=== PATIENT | female | born 1990 | race Caucasian/White ===

== ENCOUNTER 2017-08-05 09:40 | Emergency (ER) | payer SELFPAY ==
[~2017-08-05] VITALS: Ht 170.2 cm; Wt 86.0 kg
[~2017-08-05 09:40] MED LIST: POLY10O EACH EYE
[2017-08-05 09:42] VITALS: BP 141/89; PULSE 90; RESP 20; TEMP 99.5; O2SAT 99
[2017-08-05] MEDS ORDERED: birth control (10:33)
[2017-08-05] MEDS ORDERED: IPRA0.06 EACH NARE (10:41)
[2017-08-05] MEDS ORDERED: SPRI28TA PO (10:41)
[2017-08-05] MEDS ORDERED: KETOROLAC TROMETHAMINE 30 MG/ML (IVP) VIAL IVP ONE (10:45)
[2017-08-05] MEDS ORDERED: ONDANSETRON HCL 4 MG/2 ML VIAL IV ONE (10:45)
--- NOTE | 2017-08-05 10:57 | PD ---
HPI Chief Complaint: Back/ Neck Pain or Injury Time Seen by Provider: 10:35 Travel History International Travel<30 days: No Contact w/Intl Traveler<30days: No Traveled to known affect area: No History of Present Illness HPI This is a 26-year-old female who for 2 weeks has had low back pain, constant, severe, worse with walking and standing, improved with rest. She denies any dysuria but has had foul-smelling vaginal discharge. She says her pain is worse on the right than on the left and occasionally it hurts her to take a deep breath. She says she's been having fevers intermittently to 101. She's had at least 3 sexual partners in the past 6 months. She has had a sexually transmitted disease before. PFSH Past Medical History ADHD: Yes Asthma: Yes Bipolar Disorder: Yes Diminished Hearing: No Genitourinary: Yes (PID) Immunizations Current: Yes Tetanus Vaccination: Unknown ?: Not LMP: last week : 0 Para: 0 Miscarriage: 0 : 0 Past Surgical History Surgical History: No Previous Surgery Social History Alcohol Use: Yes (SOCIAL) Tobacco Use: No (<1/4PPD) Substance Use: No Allergies-Medications (Allergen,Severity, Reaction): Coded Allergies: iodine (Unverified Allergy, Severe, 08/05/17) potassium iodide (Unverified Allergy, Severe, 08/05/17) povidone-iodine (Unverified Allergy, Severe, 08/05/17) prednisone (Unverified Allergy, Severe, Rash, 08/05/17) promethazine (Unverified Allergy, Severe, Rash, 08/05/17) sodium iodide (Unverified Allergy, Severe, 08/05/17) sodium iodide (Unverified Allergy, Severe, 08/05/17) red dye (Unverified Adverse Reaction, Severe, 08/05/17) Reported Meds & Prescriptions Reported Meds & Active Scripts Active Reported Sprintec 28 (Norgestimate-Ethinyl Estradiol) 0.25-35 mg-Mcg Tab 1 Tab PO DAILY Ipratropium Nasal 0.06% [place] 1 [place] EACH NARE HS Review of Systems Except as stated in HPI: all other systems reviewed are Neg Physical Exam Narrative GENERAL:Well appearing, no acute distress SKIN: Focused skin assessment warm and dry. HEAD: Atraumatic. Normocephalic. EYES: Pupils equal and round. No injection or drainage. ENT: Moist mucous membranes NECK: Trachea midline. CARDIOVASCULAR: Regular rate and rhythm. No murmur appreciated. RESPIRATORY: Clear to auscultation. Breath sounds equal bilaterally. GASTROINTESTINAL: Abdomen soft, mildly tender to palpation in the right upper quadrant and right lower quadrants with no rebound or guarding. : Lateral CVA tenderness MUSCULOSKELETAL: Tender to palpation along the lower lumbar spinous processes NEUROLOGICAL: Awake and alert. No obvious cranial nerve deficits. Moving all extremities. PSYCHIATRIC: Appropriate mood and affect; insight and judgment normal. Data Data Last Documented VS Vital Signs Date Time Temp Pulse Resp B/P (MAP) Pulse Ox O2 Delivery O2 Flow Rate FiO2 08/05/17 10:34 19 08/05/17 09:42 99.5 90 141/89 (106) 99 Room Air Orders Orders Urinalysis - C+S If Indicated (08/05/17 09:57) Ed Urine Pregnancytest Poc (08/05/17 09:57) Complete Blood Count With Diff (08/05/17 10:36) Comprehensive Metabolic Panel (08/05/17 10:36) ^ Insert Iv (08/05/17 10:36) Wet Prep Profile (08/05/17 10:36) Gc And Chlamydia Pcr (08/05/17 10:36) Ketorolac Inj (Toradol Inj) (08/05/17 10:45) Ondansetron Inj (Zofran Inj) (08/05/17 10:45) Azithromycin Powd Pack (Zithromax Powd P (08/05/17 13:00) Lidocaine 1% Inj (50 Ml) (Xylocaine 1% I (08/05/17 13:00) Ceftriaxone Inj (Rocephin Inj) (08/05/17 13:00) Labs Laboratory Tests Test 08/05/17 11:40 08/05/17 11:50 08/05/17 12:35 White Blood Count 8.7 TH/MM3 Red Blood Count 5.15 MIL/MM3 Hemoglobin 13.3 GM/DL Hematocrit 41.3 % Mean Corpuscular Volume 80.2 FL Mean Corpuscular Hemoglobin 25.9 PG Mean Corpuscular Hemoglobin Concent 32.3 % Red Cell Distribution Width 13.0 % Platelet Count 247 TH/MM3 Mean Platelet Volume 8.1 FL Neutrophils (%) (Auto) 74.6 % Lymphocytes (%) (Auto) 18.6 % Monocytes (%) (Auto) 5.9 % Eosinophils (%) (Auto) 0.4 % Basophils (%) (Auto) 0.5 % Neutrophils # (Auto) 6.5 TH/MM3 Lymphocytes # (Auto) 1.6 TH/MM3 Monocytes # (Auto) 0.5 TH/MM3 Eosinophils # (Auto) 0.0 TH/MM3 Basophils # (Auto) 0.0 TH/MM3 CBC Comment DIFF FINAL Differential Comment Blood Urea Nitrogen 18 MG/DL Creatinine 0.75 MG/DL Random Glucose 83 MG/DL Total Protein 8.4 GM/DL Albumin 3.5 GM/DL Calcium Level 9.2 MG/DL Alkaline Phosphatase 63 U/L Aspartate Amino Transf (AST/SGOT) 26 U/L Alanine Aminotransferase (ALT/SGPT) 23 U/L Total Bilirubin 0.6 MG/DL Sodium Level 136 MEQ/L Potassium Level 4.2 MEQ/L Chloride Level 103 MEQ/L Carbon Dioxide Level 27.4 MEQ/L Anion Gap 6 MEQ/L Estimat Glomerular Filtration Rate 94 ML/MIN Urine Color YELLOW Urine Turbidity CLEAR Urine pH 6.0 Urine Specific [place] 1.029 Urine Protein TRACE mg/dL Urine Glucose (UA) NEG mg/dL Urine Ketones NEG mg/dL Urine Occult Blood NEG Urine Nitrite NEG Urine Bilirubin NEG Urine Urobilinogen LESS THAN 2.0 MG/DL Urine Leukocyte Esterase NEG Urine RBC LESS THAN 1 /hpf Urine WBC LESS THAN 1 /hpf Urine Squamous Epithelial Cells <1 /hpf Urine Mucus FEW /lpf Microscopic Urinalysis Comment CULT NOT INDICATED Clue Cells (Wet Prep) NONE SEEN Vaginal Trichomonas (Wet Prep) NONE SEEN Vaginal Yeast (Wet Prep) NONE SEEN MDM Medical Decision Making Medical Screen Exam Complete: Yes Emergency Medical Condition: Yes Interpretation(s) Afebrile, no tachycardia, mild hypertension No leukocytosis Electrolytes are reassuring Urinalysis is negative for infection Wet prep is normal Differential Diagnosis Pyelonephritis, nephrolithiasis, PID, cholelithiasis, cholecystitis, musculoskeletal back pain Narrative Course This Is a 26-year-old female who presents to the emergency department with multiple nonspecific complaints including vaginal discharge, back pain, ear pain and some eye drainage. Labs are obtained which were all reassuring. Urinalysis is negative for infection. Pelvic exam demonstrates some scant white discharge. She was empirically treated for acute cervicitis. Otherwise I think she looks very well-appearing and I don't have any suspicion for surgical or emergent etiology of her back pain. She denies history of IV drug use or numbness and weakness. I think she can safely be discharged I suspect her back pain is musculoskeletal in nature. Diagnosis Primary Impression: Back pain Qualified Codes: M54.5 - Low back pain; G89.29 - Other chronic pain Additional Impression: Cervicitis Patient Instructions: General Instructions Additional Instructions: If you develop fever, chills, severe abdominal pain, persistent vomiting or inability to eat return to the emergency department. Your pelvic exam today did not include a Pap smear. It is important to followup with a manufacturing engineer automotive on a yearly basis to be tested for cervical cancer as we do not do that from the emergency department. If there is a concern that you have sexually transmitted disease, your partner should be tested. You should followup with your manufacturing engineer automotive or with the health department to get tested for other sexually transmitted diseases like HIV and syphilis, as we do not test for these in the emergency department Med/Other Pt SpecificInfo: Prescription(s) given Scripts Naproxen (Naproxen) 500 Mg Tab 500 MG PO BID Y for PAIN SCALE 4 TO 10, #20 TAB 0 Refills Prov: Radha Ponce MD 08/05/17 Disposition: 01 DISCHARGE HOME Condition: Stable Radha Ponce MD Aug 05, 2017 10:57
[2017-08-05 12:06] LABS: AUTOMATED NEUTROPHIL # 6.5 TH/MM3 (1.8-7.7); BASOPHIL % 0.5 % (0.0-2.0); EOSINOPHIL % 0.4 % (0.0-4.0); HEMATOCRIT 41.3 % (35.0-46.0); HEMO FLAGS DIFF FINAL; LYMPH % 18.6 % (9.0-44.0); LYMPHOCYTE # 1.6 TH/MM3 (1.0-4.8); MEAN CELL VOLUME 80.2 FL (80.0-100.0); MEAN CORPUSCULAR HEMOGLOBIN 25.9 PG (27.0-34.0); MEAN CORPUSCULAR HGB CONC 32.3 % (32.0-36.0); MONO % 5.9 % (0.0-8.0); NEUT % 74.6 % (16.0-70.0); PLATELET COUNT 247 TH/MM3 (150-450); RED BLOOD COUNT 5.15 MIL/MM3 (4.00-5.30); WHITE BLOOD COUNT 8.7 TH/MM3 (4.0-11.0)
[2017-08-05 12:09] LABS: BLOOD, URINE NEG (NEG); COMMENT (UR) CULT NOT INDICATED; CULTURE IF INDICATED CULT NOT INDICATED; GLUCOSE,URINE NEG (NEG); KETONE, URINE NEG (NEG); MUCUS URINE FEW /lpf (OCC); NITRITE,URINE NEG (NEG); SQUAMOUS EPITHELIAL CELL URINE <1 /hpf (0-5); URINE COLOR YELLOW (YELLW/STRAW)
[2017-08-05 12:18] LABS: ALT (GPT) 23 U/L (10-53); ANION GAP 6 MEQ/L (5-15); AST (GOT) 26 U/L (15-37); BICARBONATE 27.4 MEQ/L (21.0-32.0); BLOOD UREA NITROGEN 18 MG/DL (7-18); CHLORIDE 103 MEQ/L (98-107); GLOMERULAR FILTRATION RATE 94 ML/MIN (>89); POTASSIUM 4.2 MEQ/L (3.5-5.1); SODIUM (NA) 136 MEQ/L (136-145)
[2017-08-05 12:21] LABS: ALKALINE PHOSPHATASE 63 U/L (45-117); TOTAL BILIRUBIN ADULT 0.6 MG/DL (0.2-1.0)
[2017-08-05] MEDS ORDERED: AZITHROMYCIN PWD FOR SUSP 1 GM PACKET PO ONE (13:00)
[2017-08-05] MEDS ORDERED: LIDOCAINE HCL 1% 50 ML VIAL IM ONE (13:00)
[2017-08-05] MEDS ORDERED: NAPR500T2 PO (13:14)
[2017-08-05 13:44] VITALS: BP 123/71
[2017-08-05 15:41] LABS: CHLAMYDIA PCR NOT DETECTED (NOT DETECT); NEISSERIA PCR NOT DETECTED (NOT DETECT)
== END 2017-08-05 13:46 | disposition home or self-care (01) ==
LOC: NEPD 09:40
DX: M54.9 Dorsalgia, unspecified (principal); N72 Inflammatory disease of cervix uteri; N89.8 Other specified noninflammatory disorders of vagina; F90.9 Attention-deficit hyperactivity disorder, unspecified type; J45.909 Unspecified asthma, uncomplicated; F31.9 Bipolar disorder, unspecified; F17.200 Nicotine dependence, unspecified, uncomplicated; Z79.899 Other long term (current) drug therapy; Z88.8 Allergy status to other drugs, medicaments and biological substances
CPT/HCPCS: 80053; 81001; 84703; 85025; 87210; 87491; 87591; 96372; 96374; 96375; 99284; J0696; J1885; J2405

== ENCOUNTER 2017-09-16 10:08 | Emergency (ER) | payer SELFPAY ==
[~2017-09-16] VITALS: Ht 170.2 cm; Wt 90.0 kg
[~2017-09-16 10:08] MED LIST changes: +IPRA0.06 EACH NARE; +NAPR500T2 PO; -POLY10O EACH EYE; +SPRI28TA PO
[2017-09-16 10:10] VITALS: BP 139/96; PULSE 96; RESP 12; TEMP 98.4; O2SAT 96
[2017-09-16] MEDS ORDERED: SODIUM CHLOR 0.9% 1000 ML INJ 1,000 ML IV ONE (10:45)
[2017-09-16] MEDS ORDERED: SODIUM CHLORIDE 0.9% FLUSH 10 ML FLUSH IVF PRN (10:45)
[2017-09-16] MEDS ORDERED: KETOROLAC TROMETHAMINE 30 MG/ML (IVP) VIAL IV PUSH ONE (10:45)
[2017-09-16 11:11] VITALS: O2SAT 98
--- NOTE | 2017-09-16 11:22 | PD ---
HPI Chief Complaint: Pain: Acute or Chronic Time Seen by Provider: 10:37 Travel History International Travel<30 days: No Contact w/Intl Traveler<30days: No Traveled to known affect area: No History of Present Illness HPI Patient is a 26-year-old female with history of asthma who presents to emergency room for evaluation of rib pain. She reports that for the past 3 days , she has had left-sided rib pain which radiates to her breast. Patient reports that pain feels sharp and stabbing in nature, reports that pain is associated with shortness of breath. Patient reports that every time she takes a deep breath, she feels a sharp stabbing pain to her back to her left chest. Reports that nothing did make symptoms better or worse. Patient denies any chest pain at this time. Patient denies history of hypertension or hyperlipidemia, denies any history of PE or DVT. Patient denies any recent travels or trips. Patient does use BCP's daily. Patient denies any cough or congestion, no recent illness. Patient also reports that she was recently visiting a sick family member who was admitted to the hospital, patient concerned that she may have pneumonia even though she has no fever/chills or cough or congestion. PFSH Past Medical History ADHD: Yes Asthma: Yes Bipolar Disorder: Yes Diminished Hearing: No Genitourinary: Yes (PID) Immunizations Current: Yes ?: Not LMP: 08/2017 : 0 Para: 0 Miscarriage: 0 : 0 Past Surgical History Other Surgery: Yes (addenoids removed) Social History Alcohol Use: Yes (SOCIAL) Tobacco Use: No Substance Use: No Allergies-Medications (Allergen,Severity, Reaction): Coded Allergies: iodine (Unverified Allergy, Severe, 09/16/17) potassium iodide (Unverified Allergy, Severe, 09/16/17) povidone-iodine (Unverified Allergy, Severe, 09/16/17) prednisone (Unverified Allergy, Severe, Rash, 09/16/17) promethazine (Unverified Allergy, Severe, Rash, 09/16/17) sodium iodide (Unverified Allergy, Severe, 09/16/17) sodium iodide (Unverified Allergy, Severe, 09/16/17) red dye (Unverified Adverse Reaction, Severe, 09/16/17) Reported Meds & Prescriptions Reported Meds & Active Scripts Active Naproxen 500 Mg Tab 500 Mg PO BID PRN Reported Sprintec 28 (Norgestimate-Ethinyl Estradiol) 0.25-35 mg-Mcg Tab 1 Tab PO DAILY Ipratropium Nasal 0.06% [place] 1 [place] EACH NARE HS Review of Systems General / Constitutional: No: Fever, Chills Eyes: No: Visual changes HENT: No: Headaches Cardiovascular: No: Chest Pain or Discomfort, Diaphoresis Respiratory: Positive: Shortness of Breath Gastrointestinal: No: Nausea, Vomiting, Diarrhea, Abdominal Pain Genitourinary: No: Urgency, Frequency, Dysuria, Pelvic Pain, Flank Pain Musculoskeletal: Positive: Pain (left sided scapula pain) Skin: No Rash Neurologic: No: Weakness Psychiatric: No: Depression Endocrine: No: Polydipsia Hematologic/Lymphatic: No: Easy Bruising Physical Exam Narrative GENERAL: Mild distress SKIN: Focused skin assessment warm/dry. HEAD: Atraumatic. Normocephalic. EYES: Pupils equal and round. No scleral icterus. No injection or drainage. ENT: No nasal bleeding or discharge. Mucous membranes pink and moist. NECK: Trachea midline. No JVD. CARDIOVASCULAR: Regular rate and rhythm. No murmur appreciated. RESPIRATORY: No accessory muscle use. Clear to auscultation. Breath sounds equal bilaterally. GASTROINTESTINAL: Abdomen soft, non-tender, nondistended. Hepatic and splenic margins not palpable. MUSCULOSKELETAL: No obvious deformities. No clubbing. No cyanosis. No edema. NEUROLOGICAL: Awake and alert. No obvious cranial nerve deficits. Motor grossly within normal limits. Normal speech. PSYCHIATRIC: Anxious mood and affect; insight and judgment normal. Data Data Last Documented VS Vital Signs Date Time Temp Pulse Resp B/P (MAP) Pulse Ox O2 Delivery O2 Flow Rate FiO2 09/16/17 11:11 98 Room Air 09/16/17 10:10 98.4 96 12 Orders Orders Electrocardiogram (09/16/17 10:45) Complete Blood Count With Diff (09/16/17 10:45) Comprehensive Metabolic Panel (09/16/17 10:45) D-Dimer (09/16/17 10:45) Magnesium (Mg) (09/16/17 10:45) Prothrombin Time / Inr (Pt) (09/16/17 10:45) Act Partial Throm Time (Ptt) (09/16/17 10:45) Lipase (09/16/17 10:45) Ecg Monitoring (09/16/17 10:45) Iv Access Insert/Monitor (09/16/17 10:45) Oximetry (09/16/17 10:45) Sodium Chloride 0.9% Flush (Ns Flush) (09/16/17 10:45) Chest, Pa & Lat (09/16/17 10:45) Ketorolac Inj (Toradol Inj) (09/16/17 10:45) Sodium Chlor 0.9% 1000 Ml Inj (Ns 1000 M (09/16/17 10:45) Ed Urine Pregnancytest Poc (09/16/17 10:45) Labs Laboratory Tests Test 09/16/17 11:14 White Blood Count 7.7 TH/MM3 Red Blood Count 4.78 MIL/MM3 Hemoglobin 12.7 GM/DL Hematocrit 38.7 % Mean Corpuscular Volume 80.8 FL Mean Corpuscular Hemoglobin 26.5 PG Mean Corpuscular Hemoglobin Concent 32.8 % Red Cell Distribution Width 13.8 % Platelet Count 186 TH/MM3 Mean Platelet Volume 8.3 FL Neutrophils (%) (Auto) 73.8 % Lymphocytes (%) (Auto) 18.9 % Monocytes (%) (Auto) 6.1 % Eosinophils (%) (Auto) 0.7 % Basophils (%) (Auto) 0.5 % Neutrophils # (Auto) 5.7 TH/MM3 Lymphocytes # (Auto) 1.5 TH/MM3 Monocytes # (Auto) 0.5 TH/MM3 Eosinophils # (Auto) 0.1 TH/MM3 Basophils # (Auto) 0.0 TH/MM3 CBC Comment DIFF FINAL Differential Comment Prothrombin Time 9.7 SEC Prothromb Time International Ratio 1.0 RATIO Activated Partial Thromboplast Time 26.9 SEC D-Dimer Quantitative (PE/DVT) 0.39 MG/L FEU Blood Urea Nitrogen 16 MG/DL Creatinine 0.71 MG/DL Random Glucose 86 MG/DL Total Protein 7.7 GM/DL Albumin 3.3 GM/DL Calcium Level 9.0 MG/DL Magnesium Level 1.8 MG/DL Alkaline Phosphatase 54 U/L Aspartate Amino Transf (AST/SGOT) 28 U/L Alanine Aminotransferase (ALT/SGPT) 22 U/L Total Bilirubin 0.7 MG/DL Sodium Level 139 MEQ/L Potassium Level 3.8 MEQ/L Chloride Level 108 MEQ/L Carbon Dioxide Level 23.7 MEQ/L Anion Gap 7 MEQ/L Estimat Glomerular Filtration Rate 100 ML/MIN Lipase 178 U/L MDM Medical Decision Making Medical Screen Exam Complete: Yes Emergency Medical Condition: Yes Medical Record Reviewed: Yes Interpretation(s) EKG at 1107: NSR at 75bpm, qt/qtc: 347/376, no acute st or t wave changes Vital Signs Date Time Temp Pulse Resp B/P (MAP) Pulse Ox O2 Delivery O2 Flow Rate FiO2 09/16/17 11:11 98 Room Air 09/16/17 10:10 98.4 96 12 139/96 (110) 96 Differential Diagnosis PE, aortic dissection, muscle strain, costochondritis, pneumothorax, electrolyte abnormality Narrative Course 26-year-old female who is nontoxic in appearance, resents to emergency room with complaints of left-sided scapula/back pain which intermittently radiates to her left breast and has been ongoing for the past 3 days. EKG obtained: no acute changes During the course of the patients emergency department visit, the patients history, examination, and differential diagnosis were reviewed with the patient. The patient was placed on a manager cardiac with oximetry and frequent blood pressure monitoring. The patient had an IV access obtained and blood work sent for analysis. The patient was initially provided IVF, IV toradol The patients laboratory studies were reviewed and remarkable for: Laboratory Tests Test 09/16/17 11:14 White Blood Count 7.7 TH/MM3 (4.0-11.0) Red Blood Count 4.78 MIL/MM3 (4.00-5.30) Hemoglobin 12.7 GM/DL (11.6-15.3) Hematocrit 38.7 % (35.0-46.0) Mean Corpuscular Volume 80.8 FL (80.0-100.0) Mean Corpuscular Hemoglobin 26.5 PG (27.0-34.0) Mean Corpuscular Hemoglobin Concent 32.8 % (32.0-36.0) Red Cell Distribution Width 13.8 % (11.6-17.2) Platelet Count 186 TH/MM3 (150-450) Mean Platelet Volume 8.3 FL (7.0-11.0) Neutrophils (%) (Auto) 73.8 % (16.0-70.0) Lymphocytes (%) (Auto) 18.9 % (9.0-44.0) Monocytes (%) (Auto) 6.1 % (0.0-8.0) Eosinophils (%) (Auto) 0.7 % (0.0-4.0) Basophils (%) (Auto) 0.5 % (0.0-2.0) Neutrophils # (Auto) 5.7 TH/MM3 (1.8-7.7) Lymphocytes # (Auto) 1.5 TH/MM3 (1.0-4.8) Monocytes # (Auto) 0.5 TH/MM3 (0-0.9) Eosinophils # (Auto) 0.1 TH/MM3 (0-0.4) Basophils # (Auto) 0.0 TH/MM3 (0-0.2) CBC Comment DIFF FINAL Differential Comment Prothrombin Time 9.7 SEC (9.8-11.6) Prothromb Time International Ratio 1.0 RATIO Activated Partial Thromboplast Time 26.9 SEC (24.3-30.1) D-Dimer Quantitative (PE/DVT) 0.39 MG/L FEU (0.00-0.50) Blood Urea Nitrogen 16 MG/DL (7-18) Creatinine 0.71 MG/DL (0.50-1.00) Random Glucose 86 MG/DL (74-106) Total Protein 7.7 GM/DL (6.4-8.2) Albumin 3.3 GM/DL (3.4-5.0) Calcium Level 9.0 MG/DL (8.5-10.1) Magnesium Level 1.8 MG/DL (1.5-2.5) Alkaline Phosphatase 54 U/L (45-117) Aspartate Amino Transf (AST/SGOT) 28 U/L (15-37) Alanine Aminotransferase (ALT/SGPT) 22 U/L (10-53) Total Bilirubin 0.7 MG/DL (0.2-1.0) Sodium Level 139 MEQ/L (136-145) Potassium Level 3.8 MEQ/L (3.5-5.1) Chloride Level 108 MEQ/L (98-107) Carbon Dioxide Level 23.7 MEQ/L (21.0-32.0) Anion Gap 7 MEQ/L (5-15) Estimat Glomerular Filtration Rate 100 ML/MIN (>89) Lipase 178 U/L (73-393) Radiology studies were reviewed and remarkable for: Last Impressions Chest X-Ray 09/16/17 1045 Signed Impressions: Service Date/Time: Saturday, September 16, 2017 11:30 - CONCLUSION: No acute disease. Dante Burch MD Patient reevaluated, patient reports that she is feeling much better at this time. Patient relates that she does not have pneumonia. Patient with most likely costochondritis, rib strain. Patient will follow up with her primary care doctor, she will return to the emergency room as needed. All labs and studies as well as all incidental findings reviewed with patient in detail Diagnosis Primary Impression: Costochondritis Patient Instructions: General Instructions Additional Instructions: Please provide patient with a copy of their lab work and studies at discharge* * Please follow up with your primary care doctor in 2-3 days Return to the ER if symptoms worsen or progress Return to the ER as needed Med/Other Pt SpecificInfo: Prescription(s) given Scripts Ibuprofen (Ibuprofen) 600 Mg Tab 600 MG PO Q6H Y for Pain/Inflammation, #40 TAB 0 Refills Prov: Cookie Valentine DO 09/16/17 Disposition: 01 DISCHARGE HOME Condition: Stable Cookie Valentine DO Sep 16, 2017 11:22
[2017-09-16 11:26] LABS: AUTOMATED NEUTROPHIL # 5.7 TH/MM3 (1.8-7.7); BASOPHIL % 0.5 % (0.0-2.0); EOSINOPHIL # 0.1 TH/MM3 (0-0.4); EOSINOPHIL % 0.7 % (0.0-4.0); HEMATOCRIT 38.7 % (35.0-46.0); HEMO FLAGS DIFF FINAL; LYMPH % 18.9 % (9.0-44.0); LYMPHOCYTE # 1.5 TH/MM3 (1.0-4.8); MEAN CELL VOLUME 80.8 FL (80.0-100.0); MEAN CORPUSCULAR HEMOGLOBIN 26.5 PG (27.0-34.0); MEAN CORPUSCULAR HGB CONC 32.8 % (32.0-36.0); MONO % 6.1 % (0.0-8.0); NEUT % 73.8 % (16.0-70.0); PLATELET COUNT 186 TH/MM3 (150-450); RED BLOOD COUNT 4.78 MIL/MM3 (4.00-5.30); RED CELL DISTRIBUTION WIDTH 13.8 % (11.6-17.2); WHITE BLOOD COUNT 7.7 TH/MM3 (4.0-11.0)
[2017-09-16 11:51] LABS: ALT (GPT) 22 U/L (10-53); ANION GAP 7 MEQ/L (5-15); AST (GOT) 28 U/L (15-37); BICARBONATE 23.7 MEQ/L (21.0-32.0); BLOOD UREA NITROGEN 16 MG/DL (7-18); CHLORIDE 108 MEQ/L (98-107); GLOMERULAR FILTRATION RATE 100 ML/MIN (>89); MAGNESIUM 1.8 MG/DL (1.5-2.5); POTASSIUM 3.8 MEQ/L (3.5-5.1); SODIUM (NA) 139 MEQ/L (136-145)
[2017-09-16 11:52] LABS: TOTAL BILIRUBIN ADULT 0.7 MG/DL (0.2-1.0)
[2017-09-16 11:53] LABS: ALKALINE PHOSPHATASE 54 U/L (45-117)
--- NOTE | 2017-09-16 11:53 | RADRPT ---
EXAM DATE/TIME: 09/16/2017 11:30 [facility] COMPARISON: No previous studies available for comparison. INDICATIONS : Chest pain. MEDICAL HISTORY : Asthma. SURGICAL HISTORY : None. ENCOUNTER: Initial ACUITY: 1 week PAIN SCORE: 10/10 LOCATION: Left chest FINDINGS: PA and lateral views of the chest demonstrate the lungs to be symmetrically aerated without evidence of mass, infiltrate or effusion. The cardiomediastinal contours are unremarkable. Osseous structure s are intact. CONCLUSION: No acute disease. Dante Burch MD on September 16, 2017 at 11:51 Board Certified Radiologist. This report was verified electronically.
[2017-09-16 12:16] LABS: APTT (PATIENT) 26.9 SEC (24.3-30.1); PROTHROMBIN TIME - PATIENT 9.7 SEC (9.8-11.6)
[2017-09-16] MEDS ORDERED: IBUP-232 PO (13:20)
--- NOTE | 2017-09-16 14:44 | EKG ---
Date Performed: 09/16/2017 Time Performed: 11:07:37 PTAGE: 26 years EKG: Sinus rhythm NORMAL ECG PREVIOUS TRACING : 04/23/2001 15.55 DOCTOR: Sridhar Troy Interpretating Date/Time 09/16/2017 14:42:36
== END 2017-09-16 13:42 | disposition home or self-care (01) ==
LOC: NEPD 10:08
DX: M94.0 Chondrocostal junction syndrome [Tietze] (principal); F90.9 Attention-deficit hyperactivity disorder, unspecified type; J45.909 Unspecified asthma, uncomplicated; F31.9 Bipolar disorder, unspecified; Z79.899 Other long term (current) drug therapy; Z88.8 Allergy status to other drugs, medicaments and biological substances
CPT/HCPCS: 71020; 80053; 83690; 83735; 84703; 85025; 85379; 85610; 85730; 93005; 96361; 96374; 99284; J1885; J7030

== ENCOUNTER 2018-02-09 06:43 | Emergency (ER) | payer SELFPAY ==
[2018-02-09] MEDS ORDERED: SODIUM CHLORIDE 0.9% FLUSH 10 ML FLUSH IVF (07:15)
[2018-02-09] MEDS: SODIUM CHLOR 0.9% 1000 ML INJ 1,000 ML IV (07:32)
[2018-02-09] MEDS: ONDANSETRON HCL 4 MG/2 ML VIAL IVP (07:33)
[2018-02-09 08:13] LABS: BASOPHIL % 0.3 % (0.0-2.0); EOSINOPHIL % 0.3 % (0.0-4.0); HEMATOCRIT 40.5 % (35.0-46.0); HEMO FLAGS DIFF FINAL; HEMOGLOBIN 13.3 GM/DL (11.6-15.3); LYMPH % 7.9 % (9.0-44.0); LYMPHOCYTE # 0.7 TH/MM3 (1.0-4.8); MEAN CELL VOLUME 78.9 FL (80.0-100.0); MEAN PLATELET VOLUME 7.8 FL (7.0-11.0); MONO % 4.8 % (0.0-8.0); MONOCYTE # 0.4 TH/MM3 (0-0.9); NEUT % 86.7 % (16.0-70.0); PLATELET COUNT 237 TH/MM3 (150-450); RED BLOOD COUNT 5.13 MIL/MM3 (4.00-5.30); RED CELL DISTRIBUTION WIDTH 13.8 % (11.6-17.2); WHITE BLOOD COUNT 9.2 TH/MM3 (4.0-11.0)
[2018-02-09 08:30] LABS: ALBUMIN 3.3 GM/DL (3.4-5.0); ALT (GPT) 22 U/L (10-53); ANION GAP 10 MEQ/L (5-15); AST (GOT) 19 U/L (15-37); BICARBONATE 22.8 MEQ/L (21.0-32.0); BLOOD UREA NITROGEN 12 MG/DL (7-18); CALCIUM 8.8 MG/DL (8.5-10.1); CHLORIDE 105 MEQ/L (98-107); CREATININE 0.78 MG/DL (0.50-1.00); GLOMERULAR FILTRATION RATE 89 ML/MIN (>89); GLUCOSE,RANDOM 114 MG/DL (74-106); MAGNESIUM 1.7 MG/DL (1.5-2.5); SODIUM (NA) 138 MEQ/L (136-145)
[2018-02-09 08:33] LABS: ALKALINE PHOSPHATASE 68 U/L (45-117); TOTAL BILIRUBIN ADULT 0.9 MG/DL (0.2-1.0); TOTAL PROTEIN 7.6 GM/DL (6.4-8.2)
[2018-02-09 09:16] LABS: LIPASE 160 U/L (73-393)
== END 2018-02-09 10:27 | disposition home or self-care (01) ==
LOC: NEPE 06:43
DX: R11.10 Vomiting, unspecified (principal); R19.7 Diarrhea, unspecified; R10.10 Upper abdominal pain, unspecified
CPT/HCPCS: 80053; 83690; 83735; 84703; 85025; 96374; 99284-25